=== PATIENT | male | born 1960 | race Caucasian/White ===

== ENCOUNTER 2016-07-13 18:35 | Emergency (ER) | payer OTHER ==
[~2016-07-13 18:35] MED LIST: DIPRIVAN VIAL ONE; SUPRANE IN ONE; VERSED ONE; XYLOCAINE 2 % (PLAIN) ONE
[2016-07-13 18:40] VITALS: BMI 33.0
[2016-07-13] MEDS ORDERED: ANCEF VIAL 1 GM ONE (19:14)
--- NOTE | 2016-07-13 19:42 | DR.GENAD ---
HPI - PCP Primary Care Physician: ROSALINDA - Complaint/Symptoms Chief Complaint Doctors Comments: Patient with a scrotal abscess has been follolwed by Dr Rubin Tellez Chief Complaint:: PAIN IN SCROTUM APPROX 3 DAYS Self Treatment fo Chief Complaint: BACTRIM X48 HRS - Source History Provided: Patient - Mode of Arrival Mode of Arrival: Ambulatory - Timing Onset of Chief Complaint: 07/10/16 PMH - PMH Past Medical History: No Past Surgical History: No - Family History History of Family Medical Conditions: Yes Family Medical History: Cancer, Coronary Artery Disease, Hypertension Family Medical History Comment: MATERNAL AND PATERNAL - Social History Does patient currently use any type of tobacco product: No Have you used tobacco products in the last 12 months: No Type of Tobacco Use: None Does any household member use tobacco: No Alcohol Use: None Do you use any recreational Drugs:: No Lives With: Spouse Lives Where: Home - infectious screening In the last 2 months have you had wt loss of >10#?: NO Have you had fever, night sweats or hemotysis?: No Have you traveled outside the country in the last 6 months?: No Isolation: Standard ROS - Review of Systems Constitutional: No Symptoms Reported Eyes: No Symptoms Reported ENTM: No Symptoms Reported Respiratoy: No Symptoms Reported Cardiovascular: No Symptoms Reported Gastrointestinal/Abdominal: No Symptoms Reported Genitourinary: No Symptoms Reported Neurological: No Symptoms Reported Musculoskeletal: No Symptoms Reported Integumentary: No Symptoms Reported Hematologic/Lymphatic: No Symptoms Reported Endocrine: No Symptoms Reported Psychiatric: No Symptoms Reported All Other Systems: Reviewed and Negative PE - Vital Signs Vitals: Temperature 102.1 F Pulse Rate 86 Respiratory Rate 20 Blood Pressure 187/91 O2 Sat by Pulse Oximetry 95 - General Limitations: No Limitations General Appearance: Alert, In No Apparent Distress - Head Head Exam: Normal Inspection, Atraumatic - Eyes Eye exam: Normal Appearance, PERRL, EOMI - ENT ENT Exam: Normal Exam External Ear Exam: Normal External Inspection TM/Canal Exam: Bilateral Normal Nose Exam: Normal Nose Exam Mouth Exam: Normal Inspection Throat Exam: Normal Inspection - Neck Neck Exam: Normal Inspection - Chest Chest Inspection: Normal Inspection - Respiratory Respiratory Exam: Normal Lung Sounds Bilat Respiratory Exam: Bilateral Clear to Auscultation - Cardiovascular Cardiovascular Exam: Regular Rate - Abdominal Exam Abdominal Exam: Normal Inspection Abdominal Tenderness: negative: RUQ, RLQ, LUQ, LLQ, Epigastrium, Suprapubic, Diffuse, Mild, Moderate, Severe, Other - Extremities Extremities Exam: Normal Inspection, Full ROM, Normal Capillary Refill, Edema - Back Back Exam: Normal Inspection, Full ROM - Neurologic Neurological Exam: Alert, Oriented X3, CN II-XII Intact - Psychiatric Psychiatric Exam: Normal Affect, Normal Mood, Depressed - Skin Skin Exam: Warm, Dry, Other (Scrotum with an abscess ) - Diagnosis Discharge Problem: Scrotal abscess - Discharge Plan Condition: Stable - Follow ups/Referrals Follow ups/Referrals: LINDA TELLEZ [Primary Care Provider] - 3 days - Instructions
[2016-07-13] MEDS: NS 50 ML IV + SPIKE MINIBAG* 100 ML IV ONE ×2 (19:51→20:09)
[2016-07-13] MEDS: LR 1000 ML IV 1,000 ML IV ONE ×2 (19:51→20:09)
[2016-07-13] MEDS ORDERED: FENTANYL INJ 100 mcg ONE ×2 (20:01→20:35)
[2016-07-13] MEDS ORDERED: MARCAINE 0.25% INJ ONE (20:14)
[2016-07-13] MEDS ORDERED: XYLOCAINE 1 % (PLAIN) ONE (20:14)
[2016-07-13] MEDS ORDERED: NS IRRIGATION 1000 ML 1,000 ML IR ONE (20:23)
[2016-07-13] MEDS ORDERED: DILAUDID INJ ONE (20:34)
[2016-07-13] MEDS ORDERED: FENTANYL INJ 250 mcg ONE (20:34)
[2016-07-13] MEDS ORDERED: NORCO 5/325 MG TAB ONE (21:41)
[2016-07-13] MEDS ORDERED: NORCO 5/325 MG TAB PO PRN (21:42)
[2016-07-13 22:23] VITALS: BP 158/75
== END 2016-07-13 22:17 | disposition home or self-care (01) ==
LOC: SURG1 19:06
PROC: 0J9C0ZX Drainage of Pelvic Region Subcutaneous Tissue and Fascia, Open Approach, Diagnostic (ICD-10-PCS; principal; 2016-07-13 19:15)
DX: N50.82 Scrotal pain (principal); N49.2 Inflammatory disorders of scrotum
CPT/HCPCS: 87070; 87075; 87205; 96365; 99284; A4222; S0020; J0690; J1170; J2001; J2250; J3010; J3490; J7120